=== PATIENT | male | born 1985 | race Caucasian/White ===

== ENCOUNTER 2017-07-09 22:44 | Emergency (ER) | payer OTHER ==
[~2017-07-09] VITALS: Ht 177.8 cm; Wt 84.1 kg
[2017-07-10 00:07] LABS: HEMATOCRIT 42.1 % (42.0-52.0); HEMOGLOBIN 14.2 g/dl (13.5-18.0); MEAN CELL VOLUME 82 fl (80.0-100.0); MEAN CORPUSCULAR HEMOGLOBIN 28 pg (27.0-31.0); MEAN CORPUSCULAR HGB CONC 34 g/dl (33.0-37.0); MEAN PLATELET VOLUME 9.8 fl (7.4-10.4); PLATELET COUNT 229 K/mm3 (130-400); RED BLOOD COUNT 5.11 M/mm3 (4.20-5.60); WHITE BLOOD COUNT 7.4 K/mm3 (4.8-10.8)
[2017-07-10 00:11] LABS: ADD PATHOLOGY DIFF REVIEW NO
[2017-07-10 00:18] LABS: BAND 2 % (0-10); EOSINOPHIL 1 % (0-4); LYMPHOCYTE 34 % (20.0-51.0); NEUTROPHILS 56 % (42.0-75.2); TOTAL CELLS COUNTED 100
[2017-07-10 00:20] LABS: ANISOCYTOSIS 1+; HYPOCHROMIA 2+; MICROCYTOSIS 2+; TARGET CELLS 1+
[2017-07-10 00:21] LABS: ACETAMINOPHEN < 10 ug/mL (10-30); ADJUSTED CALCIUM 9.2 mg/dL (8.4-10.2); ALANINE AMINOTRANSFERASE 63 U/L (21-72); ALBUMIN 4.5 gm/dL (3.5-5.0); ALCOHOL(ethanol),MEDICAL < 10 mg/dL; ALKALINE PHOSPHATASE 67 U/L (50-136); ANION GAP 11 mmol/L (7-16); BILIRUBIN,TOTAL 0.7 mg/dL (0.0-1.0); BLOOD UREA NITROGEN 18 mg/dL (9-20); CALCIUM 9.6 mg/dL (8.4-10.2); CARBON DIOXIDE 25 mmol/L (22-30); CHLORIDE 104 mmol/L (98-107); GLUCOSE 96 mg/dL (74-106); POTASSIUM 3.6 mmol/L (3.4-5.0); SALICYLATE < 1.0 mg/dL; SODIUM 140 mmol/L (137-145); TOTAL PROTEIN 7.6 gm/dL (6.4-8.2)
[2017-07-10] MEDS ORDERED: DESYREL 50MG50 MG (00:39)
[2017-07-10] MEDS ORDERED: HUMIRA40 MG/0.1 SQ (00:39)
[2017-07-10] MEDS ORDERED: WELLBUTRIN 75MG75 MG (00:40)
[2017-07-10] MEDS ORDERED: ATARAX 10MG10 MG/TAB (00:40)
[2017-07-10] MEDS ORDERED: ASPIRIN 81M81 MG/TA2 (00:40)
[2017-07-10 00:44] LABS: AMPHETAMINE URINE POSITIVE; BARBITURATES URINE NEGATIVE; BENZODIAZEPINES URINE NEGATIVE; BUPRENORPHINE URINE NEGATIVE; METHADONE URINE NEGATIVE; OPIATES URINE NEGATIVE; OXYCODONE URINE NEGATIVE; PHENCYCLIDINE URINE NEGATIVE; PROPOXYPHENE URINE NEGATIVE; THC CANNABINOIDS URINE POSITIVE; TRICYCLIC ANTIDEPRESS URINE NEGATIVE
[2017-07-10 02:43] VITALS: BP 141/61; PULSE 97
== END 2017-07-10 02:43 | disposition home or self-care (01) ==
LOC: COL.ER 22:44
PROVIDERS: Physician Assistant
DX: R45.1 Restlessness and agitation (principal); F32.9 Major depressive disorder, single episode, unspecified; F41.9 Anxiety disorder, unspecified; F17.200 Nicotine dependence, unspecified, uncomplicated

== ENCOUNTER 2020-08-27 03:39 | Inpatient (IN) | payer OTHER ==
[~2020-08-27] VITALS: Ht 177.8 cm; Wt 92.6 kg
[~2020-08-27 03:39] MED LIST: ASPIRIN 81M81 MG/TA2; ATARAX 10MG10 MG/TAB; DESYREL 50MG50 MG; HUMIRA40 MG/0.1 SQ; WELLBUTRIN 75MG75 MG
[2020-08-27 04:15] LABS: BASO # 0.1 (0.0-0.2); BASO % 0.4 % (0.0-2.0); EOS # 0.3 (0.0-0.7); EOS % 1.9 % (0-4.0); GRAN # 12.7 (1.4-6.5); GRAN % 80.7 % (42.2-75.2); HEMATOCRIT 43.1 % (42.0-52.0); HEMOGLOBIN 14.5 g/dl (13.5-18.0); LYMPH # 1.4 (1.2-3.4); LYMPH % 9.1 % (20.0-51.0); MEAN CELL VOLUME 81 fl (80.0-100.0); MEAN CORPUSCULAR HEMOGLOBIN 27 pg (27.0-31.0); MEAN CORPUSCULAR HGB CONC 34 g/dl (33.0-37.0); MEAN PLATELET VOLUME 9.8 fl (7.4-10.4); MONO # 1.2 (0.1-0.6); MONO % 7.5 % (1.7-9.3); PLATELET COUNT 225 K/mm3 (130-400); REDCELL DISTRIBUTION WIDTH-CV 13.8 % (11.5-14.5)
[2020-08-27 04:21] LABS: ALBUMIN 3.5 gm/dL (3.5-5.0); BILIRUBIN,TOTAL 0.5 mg/dL (0.0-1.0); CALCIUM 8.3 mg/dL (8.4-10.2); CREATININE, serum 0.85 (0.66-1.25); INR 1.1 (0.8-3.0); POTASSIUM 3.6 mmol/L (3.4-5.0); PROTHROMBIN TIME 12.3 SECONDS (9.7-12.8); TOTAL PROTEIN 6.8 gm/dL (6.4-8.2)
[2020-08-27 04:24] LABS: PARTIAL THROMBOPLASTIN TIME 36.1 SECONDS (26.0-37.0)
[2020-08-27 05:14] LABS: COLLECTION METHOD CLEAN CATCH
[2020-08-27 05:31] LABS: PH 6 (5-8); SQUAMOUS EPITHELIAL None Seen /hpf; URINE APPEARANCE Clear; URINE BACTERIA Rare /hpf; URINE BILIRUBIN Negative (NEGATIVE); URINE BLOOD Negative (NEGATIVE); URINE COLOR Yellow; URINE GLUCOSE Negative (NEGATIVE); URINE KETONE Negative (NEGATIVE); URINE LEUKOCYTE ESTERASE Negative (NEGATIVE); URINE NITRATE Negative (NEGATIVE); URINE PROTEIN(semi-quant) Negative (NEGATIVE); URINE RBC None Seen /hpf; URINE UROBILINOGEN Negative (NEGATIVE); URINE WBC 0-2 /hpf
[2020-08-27 06:26] VITALS: BP 154/96; PULSE 100; TEMP 98.1
[2020-08-27 08:00] VITALS: BP 149/74; PULSE 114; TEMP 99.5
[2020-08-27 08:58] LABS: TRICYCLIC ANTIDEPRESS URINE NEGATIVE
--- NOTE | 2020-08-27 10:36 | NUR ---
Initial visit; Patient thanked Machine Feed Operator for looking in on him and offering prayer and God's blessings and to keep him in Machine Feed Operator's prayers.
--- NOTE | 2020-08-27 11:26 | NUR ---
Vancomycin Initial Dosing Pharmacy Note Ordering provider: MD GENEVA Indication/duration: CELLULITIS LABS: WBC 15.7, SCr 0.8, CrCl >100 Recommendation: VANCOMYCIN ~15 MG/KG Loading dose: 1.5 grams Maintenance dose: 1.5 grams every 12 hours Trough goal: 15 ug/mL
[2020-08-27 12:34] VITALS: BP 138/90; PULSE 132; TEMP 99.2
--- NOTE | 2020-08-27 15:29 | NUR ---
Pt assessment, admission, med rec and allergies completed. Pt is A&O, independent in room, on room air, breathing is even and unlabored. Pt denies SOB, N/V/D, chest pain, Pt has IV to LFA w/ IVF at 125 ml/hr, abx running w/o issue. Pt Rt arm is swollen and red from mid forearm to shoulder, c/o pain but refusing pain medications. Pulses strong bilaterally, pt able to move arm and fingers of Rt arm/hand, difficulty straightening elbow. No further needs expressed at this time. Ortho consult placed, still needs to be seen. HRRR, LS cta. Call light within reach.
[2020-08-27 15:52] VITALS: BP 132/76; PULSE 87; TEMP 98.9
--- NOTE | 2020-08-27 16:37 | NUR ---
Automatic Line Set Up Mechanic met with patient to discuss discharge planning. Patient states he is not feeling well today. Patient lives with his girlfriend, Allyson and states that Allyson does not have a phone number. Patient reports he receives primary care at the [facility] but doesn't know what team he works with and states he hasn't been there in 3-4 year because his previous team "pissed him off". Patient does not use DME and reports independence with ADLS. Patient does not have Advance Directives. Patient is not and has no children. Patient's next of kin would be his mother, Mckenzie (ph#[phone]) who lives in [place], [place]. SW addressed patient's positive drug screen and patient states he has been using meth daily. Patient reports he has been to inpatient treatment for alcohol before, however isn't drinking much at this time. Patient states he is interested in [facility], which is a facility in [facility]. When asked why he wants to go to [place], patient just states because he feels like that is where he needs to be. SW contacted [facility] and they advised they can only accept [facility] if they are in network. SHANE then contacted Gema at [facility] who believes they take [employer], but will double check. SHANE will continue to follow.
--- NOTE | 2020-08-27 19:01 | NUR ---
Pt requesting pain medication at 1700, tylenol PRN administered per mar. Pt sleeping during bedside report. No concerns expressed.
--- NOTE | 2020-08-27 19:03 | NUR ---
Received report from Gabrielle. Patient asleep during shift change. With IV on left forearm infusing NS at 125ml/hr. Will check on patient again.
[2020-08-27 19:31] VITALS: BP 151/95; PULSE 111; TEMP 99.3
--- NOTE | 2020-08-27 19:42 | NUR ---
Patient eating his dinner. He complains of pain on his right arm with pain score of 8/10. Dilaudid given. His right arm is swollen and warm to touch. He was able to move his hands and fingers. Radial pulse is palpable. He is tachycardic. Lungs are clear. Maintained his right arm elevated with two pillows. Call light within reach.
[2020-08-27 23:18] VITALS: BP 135/89; PULSE 105; TEMP 99
--- NOTE | 2020-08-28 | NUR ---
Patient complains of pain on right arm. He states that it is worsening than before. Tylenol given. Informed Nicole charge nurse to double check patient's range of motion on his right upper extremity. Patient was able to flex and extend his hand but with pain. Pulses are good and palpable. Informed Sharita CALVIN and she said she will see the patient in a while. Maintained patient's right arm elevated.
[2020-08-28 01:30] VITALS: BP 135/83; PULSE 136
[2020-08-28 03:19] VITALS: BP 121/70; PULSE 111; TEMP 99.3
--- NOTE | 2020-08-28 03:28 | NUR ---
Patient complains of pain on his right arm. Dilaudid given. He said he feels that the swelling is up to his neck already. Will update Sharita again.
--- NOTE | 2020-08-28 04:05 | NUR ---
Sharita CALVIN went in to see and assess patient. He still has some pain. Noted to have some weaping on his right arm. He states that his swelling is already on his neck. Ortho aware as informed by Sharita.
[2020-08-28 07:38] VITALS: BP 137/90; PULSE 121; TEMP 98.4
--- NOTE | 2020-08-28 08:14 | NUR ---
Assessment complete. Patient sitting in bed but restless in the room, states because he cannot get comfortable due to pain. PRN dilaudid was provided for this as well as a cool rag. Patient is alert and talkative at this time. Arm swelling and redness is significant on the right side. Patient does have some difficulty flexing and extending the arm but hand flexsion is good and intact. Arm is warm to touch and tender to palpation. Snacks were provided per request. PAtient is aware of his POC for the day. No other needs. Call light is in reach.
[2020-08-28 09:16] LABS: MEAN CELL VOLUME 81 fl (80.0-100.0); MEAN CORPUSCULAR HGB CONC 34 g/dl (33.0-37.0); MEAN PLATELET VOLUME 10.5 fl (7.4-10.4); PLATELET COUNT 272 K/mm3 (130-400); RED BLOOD COUNT 7.06 M/mm3 (4.20-5.60); REDCELL DISTRIBUTION WIDTH-CV 14.8 % (11.5-14.5)
[2020-08-28 09:18] LABS: ALBUMIN 2.7 gm/dL (3.5-5.0); BILIRUBIN,TOTAL 0.6 mg/dL (0.0-1.0); CALCIUM 7.5 mg/dL (8.4-10.2); CREATININE, serum 1.02 (0.66-1.25); POTASSIUM 4.1 mmol/L (3.4-5.0); TOTAL PROTEIN 5.4 gm/dL (6.4-8.2)
[2020-08-28 09:25] LABS: HEMATOCRIT 57.3 % (42.0-52.0); MEAN CORPUSCULAR HEMOGLOBIN 27 pg (27.0-31.0)
[2020-08-28 09:27] LABS: HEMOGLOBIN 19.2 g/dl (13.5-18.0)
[2020-08-28 09:38] LABS: C-REACTIVE PROTEIN 18.1 mg/dL (0.0-0.9)
[2020-08-28 10:03] LABS: BAND 1 % (0-10); EOSINOPHIL 1 % (0-4); LYMPHOCYTE 7 % (20.0-51.0); NEUTROPHILS 84 % (42.0-75.2); PLATELET ESTIMATE NORMAL (NORMAL)
[2020-08-28 10:08] LABS: ERYTHROCYTE SEDIMENTATION RATE 1 mm/hr (0-15)
--- NOTE | 2020-08-28 11:21 | NUR ---
Chief Juvenile Probation Officer attended clinical rounds with the team. The patient is to have an MRI this day.
[2020-08-28 12:47] VITALS: BP 139/94; PULSE 113; TEMP 98.4
[2020-08-28 12:59] LABS: MEAN CELL VOLUME 81 fl (80.0-100.0); MEAN CORPUSCULAR HGB CONC 34 g/dl (33.0-37.0); PLATELET COUNT 269 K/mm3 (130-400); RED BLOOD COUNT 6.82 M/mm3 (4.20-5.60)
[2020-08-28 13:03] LABS: HEMATOCRIT 55.5 % (42.0-52.0); HEMOGLOBIN 18.7 g/dl (13.5-18.0); MEAN CORPUSCULAR HEMOGLOBIN 27 pg (27.0-31.0)
[2020-08-28 14:09] LABS: BAND 5 % (0-10); EOSINOPHIL 1 % (0-4); LYMPHOCYTE 6 % (20.0-51.0); NEUTROPHILS 79 % (42.0-75.2); PLATELET ESTIMATE NORMAL (NORMAL)
[2020-08-28 15:58] VITALS: BP 139/85; PULSE 117; TEMP 98.5
--- NOTE | 2020-08-28 17:30 | NUR ---
PAtient has been restless most of the day complaining of pain and discomfort in the right arm. It has become more stiff and red in that area but patient is still able to move his hand with good flexsion. ICE packs were requested towards the end of the shift per request. He has recieved PRN pain medication multiple times through the day, this seems to help for a short amount of time. IV remains CD&I, infusing well at this time. He is aware of his POC at this time and that we are currently treating him as symtomatically as possible at this time. Will continue to monitor. CAll light is in reach.
--- NOTE | 2020-08-28 20:30 | NUR ---
Initial shift assessment done- states pain to right arm 05/03-- will give Dilaudid IV as ordered, right arm up on pillows with ice-- pt states ice does help-- right arm is warm, swollen all up to shoulder to fingers-- upper arm is hard -- pt is able to move fingers and open and close hand,, Iv fluids of NS at 125cc/hr.
[2020-08-28 20:58] VITALS: BP 132/88; PULSE 107; TEMP 99.1
[2020-08-29] VITALS (8 sets, daily range): BP systolic 94–157; BP diastolic 71–97; PULSE 99–140; TEMP 97.6–99
--- NOTE | 2020-08-29 04:47 | NUR ---
Pain 9/10 to right arm-- Dilaudid given at this time-- was given every 2 hours throughout the night-- elevated on pillow- fresh ice to arm--able to move fingers and hand
[2020-08-29 07:52] LABS: MEAN CELL VOLUME 81 fl (80.0-100.0); MEAN CORPUSCULAR HGB CONC 34 g/dl (33.0-37.0); MEAN PLATELET VOLUME 10.5 fl (7.4-10.4); PLATELET COUNT 273 K/mm3 (130-400)
[2020-08-29 07:55] LABS: ALBUMIN 2.4 gm/dL (3.5-5.0); BILIRUBIN,TOTAL 0.7 mg/dL (0.0-1.0); CALCIUM 7.2 mg/dL (8.4-10.2); CREATININE, serum 1.62 (0.66-1.25); TOTAL PROTEIN 4.9 gm/dL (6.4-8.2)
[2020-08-29 08:12] LABS: HEMATOCRIT 54.3 % (42.0-52.0); HEMOGLOBIN 18.4 g/dl (13.5-18.0); MEAN CORPUSCULAR HEMOGLOBIN 27 pg (27.0-31.0)
--- NOTE | 2020-08-29 08:26 | NUR ---
Assessment complete. Patient resting in bed, arm elevated at thsi time. Complaining of pain, PRN pain medication provided. Right arm remains, red, hot and edematous. Swelling is stiff and painful to the touch on assessment. Patient states that near his armpit and in the crease of his elbow are the most painful areas. Ice packs were applied to the area per request. Will continue to monitor. Call light is in reach.
[2020-08-29 09:08] LABS: LYMPHOCYTE 10 % (20.0-51.0); NEUTROPHILS 77 % (42.0-75.2); PLATELET ESTIMATE NORMAL (NORMAL)
[2020-08-29 09:12] LABS: BAND 6 % (0-10)
[2020-08-29 12:50] LABS: COLLECTION METHOD CLEAN CATCH
[2020-08-29 12:59] LABS: MUCOUS Present /lpf; PH 5 (5-8); SQUAMOUS EPITHELIAL None Seen /hpf; URINE APPEARANCE Clear; URINE BACTERIA Rare /hpf; URINE BILIRUBIN Negative (NEGATIVE); URINE BLOOD 2+ (NEGATIVE); URINE COLOR Straw; URINE GLUCOSE Negative (NEGATIVE); URINE KETONE Negative (NEGATIVE); URINE LEUKOCYTE ESTERASE Negative (NEGATIVE); URINE NITRATE Negative (NEGATIVE); URINE PROTEIN(semi-quant) Negative (NEGATIVE); URINE RBC 0-2 /hpf; URINE UROBILINOGEN Negative (NEGATIVE); URINE WBC 0-2 /hpf
[2020-08-29 14:09] LABS: CREATININE, serum 1.61 (0.66-1.25); FRACTIONAL EXCRETION OF NA+ 0.8 %
--- NOTE | 2020-08-29 18:16 | NUR ---
Patient has had an uneventful day. Slept on and off through the day. PRN pain medication provided when asked. Patient inquizzitive in regards to treatment and whether everything is being done to help him. I assured him that he has multiple Drs on his case and that all are working to imrpove the infection that has developed in his arm. He has been educated on the fact that there is no abcess and no need for surgery and that because of that we will continue to watch his labs and treat symptomatically as well. He showered independently again today. He is diaphoretic as well on and off through the day but is not showing any other kind of withdrawl symptoms. Patient has remained plesant through the day. No other needs. Will continue to monitor. Call light is in reach.
[2020-08-30] VITALS (7 sets, daily range): BP systolic 134–156; BP diastolic 78–94; PULSE 102–124; TEMP 98.1–98.8
--- NOTE | 2020-08-30 01:54 | NUR ---
Patient A/O x4. Patient c/o pain 8 out of 10 to his right upper and lower arm area. Right side of arm is red and swollen. Pain to touch to right side of arm. Encouraged patient to elevate right arm on the pillow. Ice pack provided per patient request. PRN Dilaudid given for pain. Scheduled meds given per OCT. IV fluid running at 150ml/hr. Left forearm IV site has no s/s of complications. Call light within reach. Patient denies further needs at this time.
--- NOTE | 2020-08-30 05:57 | NUR ---
PRN Dilaudid given throughout the night for pain. IV ABX given per OCT. IV fluid infusing well. Call light within reach. Will give report to day shift nurse.
--- NOTE | 2020-08-30 07:00 | NUR ---
Report with GLEN Garcia. Pt resting in bed, denies needs at this time. IVF's infusing per orders. Call light in reach.
[2020-08-30 07:56] LABS: MEAN CELL VOLUME 83 fl (80.0-100.0); MEAN CORPUSCULAR HEMOGLOBIN 28 pg (27.0-31.0); MEAN CORPUSCULAR HGB CONC 33 g/dl (33.0-37.0); MEAN PLATELET VOLUME 10.8 fl (7.4-10.4); PLATELET COUNT 271 K/mm3 (130-400); REDCELL DISTRIBUTION WIDTH-CV 13.8 % (11.5-14.5)
[2020-08-30 08:21] LABS: ALBUMIN 2.1 gm/dL (3.5-5.0); BILIRUBIN,TOTAL 0.5 mg/dL (0.0-1.0); CREATININE, serum 1.63 (0.66-1.25); POTASSIUM 4.1 mmol/L (3.4-5.0); TOTAL PROTEIN 4.3 gm/dL (6.4-8.2)
[2020-08-30 08:25] LABS: BAND 6 % (0-10); LYMPHOCYTE 13 % (20.0-51.0); METAMYELOCYTE 1 % (0-0); NEUTROPHILS 70 % (42.0-75.2); PLATELET ESTIMATE NORMAL (NORMAL)
--- NOTE | 2020-08-30 08:30 | NUR ---
Assessment complete. Pt sitting up in bed, A&O x 4, reports pain to right arm 9 out of 10, PRN pain medication to be administered. Swelling and redness to entire right upper ext extending to right neck. Pt reports feeling that the swelling is extending down to his waist. Abd soft to palpation. IVF's infusing per orders through left forearm site without s/s of complications. No further needs reported. Call light in reach.
[2020-08-30 08:33] LABS: C-REACTIVE PROTEIN 16.7 mg/dL (0.0-0.9)
--- NOTE | 2020-08-30 19:00 | NUR ---
Report given to GLEN Garcia. Pt sitting up in bed, reports pain medication is helping when given but does not last very long or relieve pain completely. Oral pain medication tried earlier which did allow for longer decrease of pain, pt confirms. IVF's continue per orders. No further needs reported. Call light in reach.
[2020-08-31] VITALS (7 sets, daily range): BP systolic 133–159; BP diastolic 70–98; PULSE 60–120; TEMP 98.4–99.5
--- NOTE | 2020-08-31 03:03 | NUR ---
Patient laying in bed and watching TV upon enter the room. Patient A/O x4. Patient c/o pain to his right arm 8 or 9 out of 10. Patient states pain radiates to right side of shoulder, abdomen, and groin area. Skin swollen, red, +2 pitting edema to his right arm area. Scheduled meds given per OCT. PRN Oxycodone and Dilaudid given per patient request. Ice pack offered and elevated right side of arm on the pillow. Call light within reach. Patient denies further needs at this time.
--- NOTE | 2020-08-31 06:41 | NUR ---
PRN pain meds given throughout the night per patient request. Patient c/o hard to breath due to severe pain around 4am. SPO2 96% on RA at this time. Nasal canula offered to patient per patient request. Currently on oxygen at 2L via NC. No acute respiratory distress noted at this time. Will give report to day shift nurse.
[2020-08-31 07:22] LABS: HEMATOCRIT 49.9 % (42.0-52.0); HEMOGLOBIN 16.7 g/dl (13.5-18.0); MEAN CELL VOLUME 81 fl (80.0-100.0); MEAN CORPUSCULAR HEMOGLOBIN 27 pg (27.0-31.0); MEAN CORPUSCULAR HGB CONC 34 g/dl (33.0-37.0); MEAN PLATELET VOLUME 10.4 fl (7.4-10.4); PLATELET COUNT 276 K/mm3 (130-400); RED BLOOD COUNT 6.15 M/mm3 (4.20-5.60); REDCELL DISTRIBUTION WIDTH-CV 13.6 % (11.5-14.5)
[2020-08-31 07:44] LABS: BILIRUBIN,TOTAL 0.6 mg/dL (0.0-1.0); CALCIUM 6.8 mg/dL (8.4-10.2); CREATININE, serum 1.61 (0.66-1.25); POTASSIUM 4.7 mmol/L (3.4-5.0); TOTAL PROTEIN 4.3 gm/dL (6.4-8.2)
--- NOTE | 2020-08-31 09:45 | NUR ---
Assessment complete. Patient resting in bed on entry, requesting PRN pain medication at this time. States the pain is constant and he is unable to get comfortable. PRN pain meds were administered per requested. Patients arm was repositioned for comfort. Ice pack was also provided. IV site remains CD&I, infusing well at this time. No other needs were expressed at this time. Call light is in reach.
--- NOTE | 2020-08-31 11:23 | NUR ---
Due to the patient's condition, Employee Relations Administrator faxed referral to Jace with [facility] on 08/30. Jace reports that the patient meets criteria for LTACH at this time but is not sure they will be able to accept the patient. Jace states his team will check insurance benefits. The patient has [employer] [facility]. The patient may not have the benefits for LTACH. SHANE attended clinical rounds with the team. The patient's mother, Mckenzie was on speaker phone. The patient is currently on IV antiobiotics.
--- NOTE | 2020-08-31 18:20 | NUR ---
Patient has had an uneventful shift. He slept on and off through most of the day. he was not as anxious and fidgety in the room through the day. Pain meds were given as requested. IV site remains intact. Pt remains independent in room. No other needs. Call light is inr each.
--- NOTE | 2020-08-31 20:00 | NUR ---
Report received, assumed care for regional liaison. Assessment complete. A&Ox3. C/O pain to right upper extremity-rating pain 9/10 on pain scale-described as constant ache with throbbing. Oxycodone and dilaudid given per dr link. Noted to have redness/warmth/+2-3 edema to extremity from hand to shoulder. States it is worse since admission. Frustrated about this and states we are not helping him because he does drugs. Instructed that we are trying to get infection under control and its not uncommon for it to get worse before better. Discussed changes in antibiotics that were made today was well as keeping arm elevated and with ice PRN. Verbalizes understanding and denies questions. Call light in reach. will monitor.
--- NOTE | 2020-08-31 21:13 | NUR ---
Balancing Machine Set Up Worker recieved call at 3pm from Mckenziecarlos Barreto "mother" [phone] seeking advocate as pt. is scheduled for court September 03 or 2020. Mckenzie states the public welfare worker is requesting a letter that Ambrose (patient) is hospitalized & it is highly unlikely will be able to attend court Thursday. This RM called "Leonora" family law legal assistant at the public defenders office [phone] whom confirmed that this was the request to Mckenzie; Leonora shared that she has "already spoken with the public welfare worker and the recommendation to stay the appearance for 30-45 days was granted". Leonora did request a letter simply identifying that Ambrose Garza was in fact presently hospitalized at [facility]. Letter sent to fax [phone] as requested and sent to HIM for scanning into electronic medical record. Samantha Wilkins MSN HYDRODYNAMICIST-BC, Balancing Machine Set Up Worker
[2020-09-01] VITALS (8 sets, daily range): BP systolic 138–169; BP diastolic 68–102; PULSE 117–130; TEMP 97.8–100.1
--- NOTE | 2020-09-01 01:47 | NUR ---
Called with c/o pain to right upper extremity-rating pain 8/10 on pain scale-described as constant ache with intermittent sharpness. Dilaudid given per dr order. Extremity eleveated on pillows.
--- NOTE | 2020-09-01 04:01 | NUR ---
Called with c/o pain to right upper extremity described as constant throbbing with intermittent sharp pains-rating pain 8/10 on pain scale-dilaudid given per dr link. Will continue to monitor.
--- NOTE | 2020-09-01 04:54 | NUR ---
Has not rested much this shift. Received dilaudid Q2h with Oxycodone Q4h with good pain control. Right upper extremity remained elevated on pillows. Had slightly elevated blood pressures-rechecked post pain medications and WNL. Call light in reach. Will monitor.
[2020-09-01 08:44] LABS: HEMATOCRIT 49.3 % (42.0-52.0); HEMOGLOBIN 16.5 g/dl (13.5-18.0); MEAN CELL VOLUME 83 fl (80.0-100.0); MEAN CORPUSCULAR HEMOGLOBIN 28 pg (27.0-31.0); MEAN CORPUSCULAR HGB CONC 34 g/dl (33.0-37.0); MEAN PLATELET VOLUME 10.1 fl (7.4-10.4); PLATELET COUNT 302 K/mm3 (130-400); RED BLOOD COUNT 5.97 M/mm3 (4.20-5.60)
[2020-09-01 08:53] LABS: BILIRUBIN,TOTAL 0.3 mg/dL (0.0-1.0); CALCIUM 6.7 mg/dL (8.4-10.2); CREATININE, serum 1.41 (0.66-1.25); POTASSIUM 4.4 mmol/L (3.4-5.0); TOTAL PROTEIN 4.2 gm/dL (6.4-8.2)
[2020-09-01 10:34] LABS: BAND 3 % (0-10); LYMPHOCYTE 10 % (20.0-51.0); NEUTROPHILS 79 % (42.0-75.2); OVALOCYTES 1+; PLATELET ESTIMATE NORMAL (NORMAL)
--- NOTE | 2020-09-01 12:06 | NUR ---
Pt repositioned with increased elevation to right arm per request. PRN pain medication administered. IVF rate decreased to 75 ml/hr per new order. No further needs reported. Call light in reach.
--- NOTE | 2020-09-01 18:02 | NUR ---
Pt resting in bed with eyes closed, opens with light stimuli, reports pain improved from recent pain medication. Pain medication given PRN throughout shift and pt reports "feeling about the same." IVF's infusing per orders. No further needs reported. Call light in reach.
--- NOTE | 2020-09-01 19:30 | NUR ---
Report received, assumed care for plant operator/shift supervisor. Assessment complete. A&Ox3. Denies nausea/shortness of breath. VS stable. Right upper extremity elevated on pillow. No change in edema/redness/warmth-all the way in to the shoulder region. Plan of care discussed for this shift to include HS meds/pain meds/antibiotics/calling for questions/concerns. Verbalizes understanding/denies current needs. Call light in reach. Will monitor.
--- NOTE | 2020-09-01 23:30 | NUR ---
Called with c/o pain to right upper extremity/shoulder-rating pain 8/10 on pain scale-described as constant ache with intermittent throbbing. Dialudid/oxycodone given per dr order. Repositioned on pillows for elevation. Call light in reach. Will monitor.
[2020-09-02] VITALS (7 sets, daily range): BP systolic 126–157; BP diastolic 70–85; PULSE 114–124; TEMP 98.9–99.9
--- NOTE | 2020-09-02 02:50 | NUR ---
Called with c/o pain to right upper extremity/shoulder/chest-rating pain 8/10 on pain scale-described as throbbing. Dilaudid given per dr link. Will continue to monitor.
--- NOTE | 2020-09-02 05:14 | NUR ---
Called with c/o pain to right upper extremity/shoulder/chest-rating pain 8/10 on pain scale-described as constant ache/throbbing. Dilaudid/oxycodone given per dr order. Rested better this shift. Extremity appears to be less red and swollen this AM-patient agrees that it feels less tight. Free water restriction enforced-500mls total for 24 hours-all other intake was through gatorade. Voiding without difficulty. Vitals remained stable. Call light in reach. Will monitor.
--- NOTE | 2020-09-02 07:10 | NUR ---
Report with GLEN Craig. Pt sitting up in bed with eyes closed upon entry into room, arouses with light stimuli, denies needs at this time. IVF's placed in standby mode for lab draw. Call light in reach.
[2020-09-02 07:39] LABS: HEMATOCRIT 41.7 % (42.0-52.0); MEAN CELL VOLUME 81 fl (80.0-100.0); MEAN CORPUSCULAR HEMOGLOBIN 27 pg (27.0-31.0); MEAN CORPUSCULAR HGB CONC 34 g/dl (33.0-37.0); MEAN PLATELET VOLUME 9.5 fl (7.4-10.4); PLATELET COUNT 282 K/mm3 (130-400); RED BLOOD COUNT 5.13 M/mm3 (4.20-5.60)
[2020-09-02 07:58] LABS: BILIRUBIN,TOTAL 0.3 mg/dL (0.0-1.0); CALCIUM 6.7 mg/dL (8.4-10.2); CREATININE, serum 1.33 (0.66-1.25); POTASSIUM 4.1 mmol/L (3.4-5.0); TOTAL PROTEIN 4.2 gm/dL (6.4-8.2)
--- NOTE | 2020-09-02 08:00 | NUR ---
Assessment complete. Pt reports pain 8 out of 10 to right arm. Swelling and redness slightly decreased from previous shift yesterday. IVF's infusing per orders through left hand site without s/s of complications. No further needs reported. Call light in reach.
[2020-09-02 09:37] LABS: BAND 1 % (0-10); EOSINOPHIL 1 % (0-4); LYMPHOCYTE 11 % (20.0-51.0); NEUTROPHILS 77 % (42.0-75.2)
[2020-09-02 09:38] LABS: PLATELET ESTIMATE NORMAL (NORMAL)
--- NOTE | 2020-09-02 18:00 | NUR ---
Sched abx administered along with PRN pain medication. Pt has continued to report pain in right arm 8 out of 10 throughout shift with relief in between doses of pain medication. Swelling to right hand has decreased. No further needs reported. Call light in reach.
[2020-09-03] VITALS (7 sets, daily range): BP systolic 119–160; BP diastolic 56–77; PULSE 94–119; TEMP 98.5–101.9
--- NOTE | 2020-09-03 00:07 | NUR ---
Patient A/O x4. Patient c/o pain to his right arm area 8/10. Right arm red and swollen. PRN Oxycodone given at 19:58 pm and Dilaudid given at 22:12 pm for pain. All scheduled meds given per OCT. Left hand IV site has no s/s of complications. Call light within reach. Patient denies further needs at this time.
--- NOTE | 2020-09-03 05:05 | NUR ---
PRN pain meds given throughout the night per patient request. patient c/o sore throat and requesting Chloraseptic spray. Called BRIDGETT Farrell and received order to give Chloraseptic spray for once. Patient reports feeling drowning when he sits up at 0400. Auscultate lungs and wheezing noted at this time. Called Dr. Ventura and recieved verbal order for chest-x ray. Notified radiology department for this new order. Will give report to day shift nurse.
[2020-09-03 07:58] LABS: HEMATOCRIT 39.1 % (42.0-52.0); MEAN CELL VOLUME 82 fl (80.0-100.0); MEAN CORPUSCULAR HEMOGLOBIN 27 pg (27.0-31.0); MEAN CORPUSCULAR HGB CONC 33 g/dl (33.0-37.0); MEAN PLATELET VOLUME 9.6 fl (7.4-10.4); PLATELET COUNT 309 K/mm3 (130-400); RED BLOOD COUNT 4.78 M/mm3 (4.20-5.60)
[2020-09-03 08:11] LABS: ALBUMIN 2.2 gm/dL (3.5-5.0); BILIRUBIN,TOTAL 0.5 mg/dL (0.0-1.0); CALCIUM 7.2 mg/dL (8.4-10.2); CREATININE, serum 1.31 (0.66-1.25); PHOSPHOROUS 3.4 mg/dL (2.5-4.5); POTASSIUM 4.1 mmol/L (3.4-5.0); TOTAL PROTEIN 4.6 gm/dL (6.4-8.2)
[2020-09-03 09:05] LABS: BAND 9 % (0-10); EOSINOPHIL 6 % (0-4); LYMPHOCYTE 14 % (20.0-51.0); NEUTROPHILS 66 % (42.0-75.2); PLATELET ESTIMATE NORMAL (NORMAL)
--- NOTE | 2020-09-03 11:23 | NUR ---
Pt assessment completed and charted, medications administered per mar. Pt laying in bed, sleeping, arouses to name/verbal stimuli. Pt has LH INT IF that flushes w/o issue. NO edema noted to LE. RUE swollen, red, firm... per pt has improved since admission. Pt able to move arm, hand and fingers. Redness and swelling extends to mid rt upper chest. Pt on room air, breathing is even and unlabored, denies N/V/D, dizziness. Pt states his pain is 8/10, extends from RUE to rt mid chest, received PRN pain medications this morning per requests. No edema noted. LS cta, HRRR occasionally tachy. No further needs at this time.
--- NOTE | 2020-09-03 14:33 | NUR ---
Improvement Nurse met with the patient to follow up. The patient plans to return home at discharge. The patient maybe needing IV antiobiotics at discharge and discussed the process. SHANE contacted Alexandra gonzalez [place] social media designer to inquire about what kind of benefits the patient has with his [employer] [facility], left message.
--- NOTE | 2020-09-03 16:30 | NUR ---
Late entry. Patient transferred to room 323 from medical unit. Upon gathering patients belongings, patient stated "Don't drop my drugs out of my coat." At this time, small clear rocks fell out of coat pocket. Relayed to patient that he is not allowed to have illegal drugs within the hospital, request to search patients belongings, permission given by patient. Several small clear rocks, broken mirror, low pressure boiler operator, small plastic bag of white powder residue, syringe with 3ml clear fluid, syringe with 0.5ml brown fluid, multiple cigarette tips found in coat pocket. Patient stated to 'Look in the secret inside left pocket of my jacket to find what your looking for". Informed patient that for patient and staff safety, these items are being removed from room. Patient stated "Just hold them for me until I leave here." Also, a medication bottle with another patients name was found in patients coat pocket. This bottle was labeled as bactrim and contained several tablets of bactrim and fluconazole. The bottle was labeled with the name "Christopher Jimenez". All above items were removed from room, Route Driver Coin [employer]ines notified, security came to unit and picked up all items.
--- NOTE | 2020-09-03 17:01 | NUR ---
Non covid pts being transferred to surgical side of hospital. Upon being transferred, this nurse observed what appeared to be drug paraphernelia falling out of jacket pocket at pt bedside. Lighters, empty syringes, and what appeared to be drugs/meth in pt possession. supervisor concrete stone fabricating notified, GLEN Goodman charge nurse on surgical notified. Report given to GLEN Lr who is taking over care of pt for rest of afternoon. Supervisors took over situation. Cares resumed w/ GLEN Lr.
--- NOTE | 2020-09-03 21:00 | NUR ---
PAtient resting in bed. Complaints of pain to his right arm. R arm is elevated on pillows. VSS.
--- NOTE | 2020-09-04 00:30 | NUR ---
Patient has a fever of 101.9. BRIDGETT Wallace, notified. Orders for tylenol and blood cultures.
[2020-09-04 00:43] LABS: BASO # 0.1 (0.0-0.2); BASO % 0.6 % (0.0-2.0); EOS # 0.7 (0.0-0.7); EOS % 5.9 % (0-4.0); GRAN # 8.3 (1.4-6.5); GRAN % 70.7 % (42.2-75.2); HEMOGLOBIN 11.7 g/dl (13.5-18.0); LYMPH # 1.5 (1.2-3.4); LYMPH % 12.4 % (20.0-51.0); MEAN CELL VOLUME 83 fl (80.0-100.0); MEAN CORPUSCULAR HEMOGLOBIN 27 pg (27.0-31.0); MEAN CORPUSCULAR HGB CONC 33 g/dl (33.0-37.0); MEAN PLATELET VOLUME 9.2 fl (7.4-10.4); MONO # 1.1 (0.1-0.6); MONO % 9.2 % (1.7-9.3); PLATELET COUNT 318 K/mm3 (130-400)
[2020-09-04 00:49] LABS: HEMATOCRIT 35.6 % (42.0-52.0)
[2020-09-04 00:56] LABS: ALBUMIN 2.3 gm/dL (3.5-5.0); BILIRUBIN,TOTAL 0.3 mg/dL (0.0-1.0); CALCIUM 7.3 mg/dL (8.4-10.2); CREATININE, serum 1.18 (0.66-1.25); POTASSIUM 3.9 mmol/L (3.4-5.0); TOTAL PROTEIN 4.9 gm/dL (6.4-8.2)
[2020-09-04 00:58] LABS: COLLECTION METHOD CLEAN CATCH
[2020-09-04 01:03] LABS: PH 7 (5-8); SQUAMOUS EPITHELIAL None Seen /hpf; URINE APPEARANCE Clear; URINE BACTERIA Rare /hpf; URINE BILIRUBIN Negative (NEGATIVE); URINE BLOOD Negative (NEGATIVE); URINE COLOR Straw; URINE GLUCOSE Negative (NEGATIVE); URINE KETONE Negative (NEGATIVE); URINE LEUKOCYTE ESTERASE Negative (NEGATIVE); URINE NITRATE Negative (NEGATIVE); URINE PROTEIN(semi-quant) Negative (NEGATIVE); URINE RBC None Seen /hpf; URINE UROBILINOGEN Negative (NEGATIVE)
[2020-09-04 01:12] LABS: C-REACTIVE PROTEIN 14.3 mg/dL (0.0-0.9)
--- NOTE | 2020-09-04 02:01 | NUR ---
IV is causing patient irritation. No redness, swelling, or drainage. Patient says he wants to keep this IV. IV site wrapped in warm blanket while antibiotics were infusing.
[2020-09-04 04:00] VITALS: BP 139/79; PULSE 108; TEMP 99.2
--- NOTE | 2020-09-04 04:56 | NUR ---
PATIENT'S FEVER IS DOWN TO 99.2. PATIENT HAS NO COMPLAINTS OF PAIN AT THIS TIME.
--- NOTE | 2020-09-04 06:25 | NUR ---
WRAPPED PATIENT'S IV. PATIENT TAKING SHOWER NOW.
[2020-09-04 08:19] LABS: HEMOGLOBIN 12.1 g/dl (13.5-18.0); MEAN CELL VOLUME 84 fl (80.0-100.0); MEAN CORPUSCULAR HEMOGLOBIN 28 pg (27.0-31.0); MEAN CORPUSCULAR HGB CONC 33 g/dl (33.0-37.0); MEAN PLATELET VOLUME 9.3 fl (7.4-10.4); PLATELET COUNT 308 K/mm3 (130-400); RED BLOOD COUNT 4.35 M/mm3 (4.20-5.60)
[2020-09-04 08:28] LABS: HEMATOCRIT 36.4 % (42.0-52.0)
[2020-09-04 08:37] LABS: CALCIUM 7.6 mg/dL (8.4-10.2); CREATININE, serum 1.22 (0.66-1.25)
[2020-09-04 08:58] VITALS: BP 156/65; PULSE 120; TEMP 100.2
--- NOTE | 2020-09-04 10:44 | NUR ---
Patient requested pain medications. Upon entering room, patient visiting on telephone and eating snacks. Patient states "I've been asking for pain medications for two hours." Reviewed with patient that pain medications have a set time how often they can be given. Patient requests Dr Canchola come to room so that he can ok him having pain medications when he wants it. Informed patient ath Dr Canchola is not at the hospital today, he will be seen by Dr Clements. Patient states "He needs to give me pain medicine when I want it." Again reviewed with patient pain medication protocols. Patient asks for "stash you took yesterday" to be returned to patient. Educated patient on illegal drug use and pain medications avialable to him within the hospital setting.
[2020-09-04 10:58] VITALS: BP 129/68; PULSE 114; TEMP 99.9
--- NOTE | 2020-09-04 11:07 | NUR ---
Patient alert and oriented, answers questions appropriately. See assessment. RUE with edema noted from elbow to shoulder, warm to touch, no discoloration. No open areas noted to RUE. ROM to RUE WNL, pulses palpable. No c/o at this time.
[2020-09-04 15:34] VITALS: BP 149/96; PULSE 98; TEMP 99.1
[2020-09-04 19:10] VITALS: BP 138/78; PULSE 114; TEMP 100.3
--- NOTE | 2020-09-05 09:32 | NUR ---
Follow-up visit; Patient having a difficult day though thanked Representative Phlebotomy Services for offering prayer and God's blessings.
--- NOTE | 2020-09-05 11:49 | NUR ---
PT RESTING IN BED VOIDING WELL. FLUID RESTRICTIONS LIFTED BY DR. RICCI. PT RESTING IN BED AT THIS TIME.PT DENIES NEEDS. VSS, ALL ASSESSMENTS WNL EXCEPT WHERE NOTED.
[2020-09-05 12:17] VITALS: BP 137/80; PULSE 105; TEMP 99.4
[2020-09-05 13:00] LABS: HEMATOCRIT 36.6 % (42.0-52.0); HEMOGLOBIN 12.1 g/dl (13.5-18.0); MEAN CELL VOLUME 83 fl (80.0-100.0); MEAN CORPUSCULAR HEMOGLOBIN 28 pg (27.0-31.0); MEAN CORPUSCULAR HGB CONC 33 g/dl (33.0-37.0); MEAN PLATELET VOLUME 9.8 fl (7.4-10.4); PLATELET COUNT 358 K/mm3 (130-400)
[2020-09-05 13:15] LABS: BAND 3 % (0-10); EOSINOPHIL 1 % (0-4); LYMPHOCYTE 14 % (20.0-51.0); NEUTROPHILS 74 % (42.0-75.2); PLATELET ESTIMATE NORMAL (NORMAL)
[2020-09-05 13:24] LABS: ALBUMIN 2.7 gm/dL (3.5-5.0); BILIRUBIN,TOTAL 0.4 mg/dL (0.0-1.0); CREATININE, serum 1.25 (0.66-1.25); MAGNESIUM 2.2 mg/dL (1.6-2.3); POTASSIUM 4.2 mmol/L (3.4-5.0); TOTAL PROTEIN 5.7 gm/dL (6.4-8.2)
[2020-09-05 13:40] LABS: HIV 1/2 Antibodies Non-Reactive; HIV-1p24 Antigen Non-Reactive
[2020-09-05 16:37] VITALS: BP 129/74; PULSE 95; TEMP 99.6
[2020-09-05 19:40] VITALS: BP 127/73; PULSE 112; TEMP 101.8
--- NOTE | 2020-09-05 20:15 | NUR ---
Notified BRIDGETT Wallace of rash to trunk, legs, buttocks and back. New orders received and initiated. Also clarified fluid restrictions as nursing notes stated restriction was lifted but order still active. Fluid restriction DCd at this time. Will continue to monitor.
--- NOTE | 2020-09-05 21:45 | NUR ---
Up ambulating in the hallway. States "I really really really need some nicotine." Discussed no smoking policy and offered to call for a nicotine patch order but refused. Denies any other questions/concerns. Call light in reach. Will monitor.
[2020-09-05 23:29] VITALS: BP 126/64; PULSE 89; TEMP 98.5
--- NOTE | 2020-09-05 23:55 | NUR ---
IV to left forearm infiltrated-red/warm/painful. DCd at this time. Cath intact. New IV placed to left upper arm-18g-x2 attempts by this nurse. Flushes without difficulty. Vanco restarted at this time. Will monitor.
[2020-09-06 04:44] VITALS: BP 135/71; PULSE 109; TEMP 102.2
--- NOTE | 2020-09-06 04:50 | NUR ---
Notified by PCT of elevated temp of 102.8. Tylenol given per dr order. Also requesting pain meds for right upper extremity/shoulder pain-rating pain 7/10 on pain scale-described as constant ache with intermittent throbbing. Oxycodone given per dr order. C/O sore throat as well. Cough drop and chloreseptic spray given per dr order. Will continue to monitor.
--- NOTE | 2020-09-06 05:46 | NUR ---
Dr Ventura notified of increased rash to buttocks, back, sides, trunk and arms. New orders received for PRN benadryl. Given at this time. Will continue to monitor.
[2020-09-06 07:11] VITALS: BP 125/70; PULSE 103; TEMP 99.2
[2020-09-06 08:43] LABS: BASO % 0.5 % (0.0-2.0); EOS # 0.3 (0.0-0.7); EOS % 5.2 % (0-4.0); GRAN # 4.3 (1.4-6.5); GRAN % 66.4 % (42.2-75.2); HEMOGLOBIN 10.9 g/dl (13.5-18.0); LYMPH % 15.2 % (20.0-51.0); MEAN CELL VOLUME 83 fl (80.0-100.0); MEAN CORPUSCULAR HEMOGLOBIN 27 pg (27.0-31.0); MEAN CORPUSCULAR HGB CONC 33 g/dl (33.0-37.0); MEAN PLATELET VOLUME 9.6 fl (7.4-10.4); MONO # 0.8 (0.1-0.6); MONO % 11.8 % (1.7-9.3); PLATELET COUNT 331 K/mm3 (130-400); RED BLOOD COUNT 4.01 M/mm3 (4.20-5.60); REDCELL DISTRIBUTION WIDTH-CV 13.9 % (11.5-14.5)
[2020-09-06 08:49] LABS: ALBUMIN 2.9 gm/dL (3.5-5.0); BILIRUBIN,TOTAL 0.3 mg/dL (0.0-1.0); CALCIUM 8.1 mg/dL (8.4-10.2); CREATININE, serum 1.31 (0.66-1.25); MAGNESIUM 2.1 mg/dL (1.6-2.3); POTASSIUM 4.1 mmol/L (3.4-5.0)
[2020-09-06 08:50] LABS: HEMATOCRIT 33.1 % (42.0-52.0)
--- NOTE | 2020-09-06 09:30 | NUR ---
Follow-up visit; Patient thanked Link Trainer for visiting and offering God's blessings and prayer.
--- NOTE | 2020-09-06 09:43 | NUR ---
PT DROWSEY ON ASSESSMENT. ATE 80 % OF BREAKFAST. PO PAIN MEDS WORKING WELL. RIGHT ARM IMPROVING FROM PREVIOUS ASSESSMENT.
[2020-09-06 11:14] VITALS: BP 143/75; PULSE 106; TEMP 100.2
[2020-09-06 12:41] LABS: COLLECTION METHOD CLEAN CATCH
[2020-09-06 12:52] LABS: PH 7 (5-8); SQUAMOUS EPITHELIAL None Seen /hpf; URINE APPEARANCE Clear; URINE BACTERIA None Seen /hpf; URINE BILIRUBIN Negative (NEGATIVE); URINE BLOOD Negative (NEGATIVE); URINE COLOR Yellow; URINE GLUCOSE Negative (NEGATIVE); URINE KETONE Negative (NEGATIVE); URINE LEUKOCYTE ESTERASE Negative (NEGATIVE); URINE NITRATE Negative (NEGATIVE); URINE PROTEIN(semi-quant) Negative (NEGATIVE); URINE RBC 0-2 /hpf; URINE UROBILINOGEN Negative (NEGATIVE)
[2020-09-06 13:10] LABS: TRICYCLIC ANTIDEPRESS URINE NEGATIVE
[2020-09-06 13:36] LABS: MONOSCREEN NEGATIVE
[2020-09-06 16:46] VITALS: BP 141/80; PULSE 103; TEMP 102.2
[2020-09-06 18:30] LABS: STREP SCREEN NEGATIVE
--- NOTE | 2020-09-06 19:25 | NUR ---
Resting in bed. Assessment complete. Lungs clear. Heart sounds normal. bowels active x4. Pulses present throughout. Right upper extremity edema +2 with erythema present. IV left upper arm without complications. Reports 8/10 right upper arm pain. Given PRN oxycodone. Also reports sore throat. Given PRN halls and spray. Denies other needs at this time. Call light in reach.
[2020-09-06 20:19] VITALS: BP 123/62; PULSE 102; TEMP 100
--- NOTE | 2020-09-06 23:05 | NUR ---
Reports 8/10 right arm pain. Given PRN oxycodone at this time. Call light in reach.
[2020-09-07] VITALS (12 sets, daily range): BP systolic 117–147; BP diastolic 66–81; PULSE 86–100; TEMP 98.9–101.7
--- NOTE | 2020-09-07 02:55 | NUR ---
Reported 8/10 pain. Given PRN oxycodone at this time along with halls and spray for sore throat.
--- NOTE | 2020-09-07 06:22 | NUR ---
Patient required halls, chloraseptic spray, and oxycodone throughout night. Otherwise uneventful night. Resting in bed this AM. Call light in reach.
[2020-09-07 06:56] LABS: BASO % 0.7 % (0.0-2.0); EOS # 0.2 (0.0-0.7); EOS % 3.7 % (0-4.0); GRAN # 3.6 (1.4-6.5); GRAN % 59.5 % (42.2-75.2); HEMOGLOBIN 11.4 g/dl (13.5-18.0); LYMPH # 1.3 (1.2-3.4); MEAN CELL VOLUME 82 fl (80.0-100.0); MEAN CORPUSCULAR HEMOGLOBIN 27 pg (27.0-31.0); MEAN CORPUSCULAR HGB CONC 33 g/dl (33.0-37.0); MEAN PLATELET VOLUME 9.8 fl (7.4-10.4); MONO # 0.8 (0.1-0.6); MONO % 13.1 % (1.7-9.3); PLATELET COUNT 354 K/mm3 (130-400); RED BLOOD COUNT 4.25 M/mm3 (4.20-5.60); REDCELL DISTRIBUTION WIDTH-CV 13.8 % (11.5-14.5)
[2020-09-07 07:11] LABS: ALBUMIN 3.2 gm/dL (3.5-5.0); BILIRUBIN,TOTAL 0.4 mg/dL (0.0-1.0); CALCIUM 8.3 mg/dL (8.4-10.2); CREATININE, serum 1.4 (0.66-1.25); POTASSIUM 4.2 mmol/L (3.4-5.0); TOTAL PROTEIN 6.6 gm/dL (6.4-8.2)
--- NOTE | 2020-09-07 07:12 | NUR ---
Report given to GLEN Lr
--- NOTE | 2020-09-07 08:45 | NUR ---
PT DOWN FOR [facility]A WITH DR NAVARRETE.
--- NOTE | 2020-09-07 09:33 | NUR ---
PT BACK FROM [facility] WITH NEGATIVE REPORTS OF VEGETATIVE GROWTH FROM DR. NAVARRETE. VSS, UPDATED ON PT STATUS.
--- NOTE | 2020-09-07 10:24 | NUR ---
Follow-up visit; Patient thanked [employer] Consultant for looking in on him, reading today's Spiritual Message, visiting about his health and life and offering God's blessings.
--- NOTE | 2020-09-07 10:27 | NUR ---
The patient is to have a [facility]A today. SW met with the patient to follow up. The patient states that he is okay and still plans on returning to his girlfriend's home upon discharge.
[2020-09-08 00:17] VITALS: BP 123/77; PULSE 81; TEMP 99.7
[2020-09-08 04:16] VITALS: BP 149/72; PULSE 81; TEMP 98.9
--- NOTE | 2020-09-08 06:00 | NUR ---
Patient slept most the night. He continues to have joint pain. Last time we spoke about his pain this morning, he stated the pain medications were not working and did not want them. He wants them changed. He stated they only last 3-4 hours. Explained that is about how long they are supposed to last. No other changes at this time. Call light within reach.
--- NOTE | 2020-09-08 08:00 | NUR ---
Patient in bed resting. Alert and oriented x 3. Assessment complete. Denies pain at this time. Edema to BLE noted. INT to RAC without complications. Denies further needs at this time.
[2020-09-08 08:03] LABS: BASO % 0.3 % (0.0-2.0); GRAN # 2.5 (1.4-6.5); GRAN % 63.9 % (42.2-75.2); HEMOGLOBIN 11.2 g/dl (13.5-18.0); LYMPH # 0.9 (1.2-3.4); LYMPH % 22.6 % (20.0-51.0); MEAN CELL VOLUME 83 fl (80.0-100.0); MEAN CORPUSCULAR HEMOGLOBIN 27 pg (27.0-31.0); MEAN CORPUSCULAR HGB CONC 33 g/dl (33.0-37.0); MEAN PLATELET VOLUME 9.9 fl (7.4-10.4); MONO # 0.5 (0.1-0.6); MONO % 12.4 % (1.7-9.3); PLATELET COUNT 343 K/mm3 (130-400); REDCELL DISTRIBUTION WIDTH-CV 13.6 % (11.5-14.5)
[2020-09-08 08:14] LABS: ALBUMIN 3.1 gm/dL (3.5-5.0); BILIRUBIN,TOTAL 0.3 mg/dL (0.0-1.0); CALCIUM 8.4 mg/dL (8.4-10.2); CREATININE, serum 1.2 (0.66-1.25); POTASSIUM 4.1 mmol/L (3.4-5.0); TOTAL PROTEIN 6.6 gm/dL (6.4-8.2)
[2020-09-08 08:18] LABS: HEMATOCRIT 33.9 % (42.0-52.0)
--- NOTE | 2020-09-08 08:20 | NUR ---
Patient in bed resting. Alert and oriented x 3. Assessment complete. States pain 8/10 to joints. Medications given per orders. Fluids infusing per orders. Denies further needs at this time.
[2020-09-08 09:15] VITALS: BP 130/70; PULSE 77; TEMP 98.1
--- NOTE | 2020-09-08 13:04 | NUR ---
Patient called out to nurses station states pain 8/10 to joints and itching to rash. Medications given per orders.
[2020-09-08 13:22] VITALS: BP 121/76; PULSE 82; TEMP 98.4
[2020-09-08 16:23] VITALS: BP 129/76; PULSE 74; TEMP 98
--- NOTE | 2020-09-08 18:05 | NUR ---
Patient has done well throughout the day. Educated patient on maintining bed in low position, patient refuses and moves bed to high position "because it is more comfortable". Patient ambulated indpendently in halls this AM with steady gait. Denies pain at this time. Fluids continue infusing per orders. Denies further needs at this time. Will report off to hourly shift.
--- NOTE | 2020-09-08 20:00 | NUR ---
Report received, assumed care for night assistant. Assessment complete. A&Ox3-drowsy. VS stable. C/O pain to right upper extremity-rated 8/10 on pain scale-oxycodone per dr order. IV to left upper extremity flushes without difficulty-dressing replaced at this time. Plan of care discussed for this shift to include HS meds/pain meds/calling for questions/concerns. Call light in reach. Will monitor.
[2020-09-08 20:40] VITALS: BP 134/83; PULSE 61; TEMP 98.3
[2020-09-09 00:37] VITALS: BP 129/78; PULSE 67; TEMP 98.2
--- NOTE | 2020-09-09 00:50 | NUR ---
Called with c/o pain to right lower extremity and throat-rating pain 8/10 on pain scale-described as constant thorbbing/burning-oxycodone given per dr order. Also given cough drop and chloreseptic spray. Will continue to monitor.
[2020-09-09 04:55] VITALS: BP 120/70; PULSE 75; TEMP 97.9
--- NOTE | 2020-09-09 06:10 | NUR ---
Rested well this shift. Taking pain meds less frequently-received two doses of oxycodone this shift. States he feels better since rash has started to go away. Discussed bed height and safety several times but continues to raise bed up in air. Denied nausea/shortness of breath. Tolerating PO. Voiding without difficulty. Afebrile this shift. Call light in reach. Will monitor.
[2020-09-09 06:53] LABS: BASO % 0.3 % (0.0-2.0); EOS % 0.2 % (0-4.0); GRAN # 3.7 (1.4-6.5); GRAN % 61.7 % (42.2-75.2); HEMOGLOBIN 10.6 g/dl (13.5-18.0); LYMPH # 1.4 (1.2-3.4); LYMPH % 23.2 % (20.0-51.0); MEAN CELL VOLUME 83 fl (80.0-100.0); MEAN CORPUSCULAR HEMOGLOBIN 27 pg (27.0-31.0); MEAN CORPUSCULAR HGB CONC 33 g/dl (33.0-37.0); MEAN PLATELET VOLUME 10.5 fl (7.4-10.4); MONO # 0.9 (0.1-0.6); MONO % 14.3 % (1.7-9.3); PLATELET COUNT 365 K/mm3 (130-400); RED BLOOD COUNT 3.87 M/mm3 (4.20-5.60); REDCELL DISTRIBUTION WIDTH-CV 13.7 % (11.5-14.5)
[2020-09-09 06:59] LABS: HEMATOCRIT 32.2 % (42.0-52.0)
[2020-09-09 07:03] LABS: ALBUMIN 3.2 gm/dL (3.5-5.0); BILIRUBIN,TOTAL 0.3 mg/dL (0.0-1.0); CALCIUM 8.6 mg/dL (8.4-10.2); CREATININE, serum 1.03 (0.66-1.25); POTASSIUM 3.7 mmol/L (3.4-5.0); TOTAL PROTEIN 6.8 gm/dL (6.4-8.2)
--- NOTE | 2020-09-09 08:00 | NUR ---
Patient laying in bed, easily awakened with verbal command. A&Ox4. VSS. IV CDI, fluids infusing. Reporting pain in right shoulder, pain medication given as requested. Bed all the way up in the air per patient request. Nursing staff discussing with patient risk associated with the bed up high. Patient verbalized an understanding. No further needs expressed from the patient. Call light within reach
[2020-09-09 08:32] VITALS: BP 139/79; PULSE 68; TEMP 98.1
[2020-09-09] MEDS ORDERED: PREDNISONE20 MG PO (09:52)
[2020-09-09] MEDS ORDERED: LEVAQUIN 750MG750 M1 PO (09:52)
--- NOTE | 2020-09-09 10:30 | NUR ---
SW met with patient to address concerns related to affording medications. park worker will send medication voucher and related paperwork to [facility] at noon. park worker addressed concerns related to patient's wish to attend rehabilitation facility. park worker made contact with [facility] through the [facility] in [place]. park worker left message with patient's name and phone number per patient request. Patient will be discharged today. No other needs were identified at this time.
[2020-09-09 11:12] VITALS: BP 133/88; PULSE 68; TEMP 98
--- NOTE | 2020-09-09 12:52 | NUR ---
Patient was provided with voucher for medications to [facility].
--- NOTE | 2020-09-09 12:56 | NUR ---
Discharge paperwork reviewed with the patient. Patient was only concerned with getting out of here and where his "other" belongings were. Nurse informed the patient that his belongings are at [facility]. Patient verbalized an understanding. Personal belongings with the patient. Patient refusing to wait for a voucher for a taxi. client services analyst and House superivor aware. IV removed, tip intact. Patient tolerated well. Nurse walked the patient to the ER entrance.
== END 2020-09-09 12:58 | disposition home or self-care (01) | DRG 871 ==
LOC: COL.ER 03:39 → MEDICAL 05:20 → SURG 09-03 16:23
PROVIDERS: Emergency Medicine; Family Medicine; Hospitalist; Nurse Practitioner Family; Physician Assistant; Student in an Organized Health Care Education/Training Program
DX: A41.9 Sepsis, unspecified organism (principal); J18.9 Pneumonia, unspecified organism; L03.113 Cellulitis of right upper limb; E87.1 Hypo-osmolality and hyponatremia; N17.9 Acute kidney failure, unspecified; M62.82 Rhabdomyolysis; R65.20 Severe sepsis without septic shock; F43.10 Post-traumatic stress disorder, unspecified; F41.9 Anxiety disorder, unspecified; F32.9 Major depressive disorder, single episode, unspecified; F17.210 Nicotine dependence, cigarettes, uncomplicated; F15.10 Other stimulant abuse, uncomplicated; Z20.828 Contact with and (suspected) exposure to other viral communicable diseases; M45.9 Ankylosing spondylitis of unspecified sites in spine; R50.2 Drug induced fever; T36.95XA Adverse effect of unspecified systemic antibiotic, initial encounter; H35.389 Toxic maculopathy, unspecified eye; K59.00 Constipation, unspecified; J43.8 Other emphysema; I80.8 Phlebitis and thrombophlebitis of other sites; M60.80 Other myositis, unspecified site; R74.01 Elevation of levels of liver transaminase levels; D75.1 Secondary polycythemia; Z59.0 Homelessness
CPT/HCPCS: 99223-AI; 99231-AI; 99232-AI; 99233-AI; 99239; A9284; J1170; J1450; J1650; J2185; J2543; J2704; J3370; J7030; J7050; J7512; Q9967